=== PATIENT | male | born 1960 | race Hispanic/Latino ===

== ENCOUNTER 2025-04-02 13:01 | Emergency (ER) | payer OTHER ==
[~2025-04-02] VITALS: Ht 188 cm; Wt 102.5 kg
--- NOTE | 2025-04-02 14:27 | ERN ---
General Chief Complaint: Arm Swelling/Redness Stated Complaint: BOIL Time Seen by MD: 14:15 Source: patient History of Present Illness Initial Comments Patient is a 64 year old male complaining of ball like swelling in the left upper arm since one month which is painful with movements like turning door knobs and lifting anything heavy. Patient denies redness, weakness and fevers. Patient says he has been applying ice for several weeks without any improvement. Patient admits to work place injury a month ago in which he had a pull type injury. Past Medical History Past Medical History: No Pertinent History Past Surgical History: None ROS Dictation REVIEW OF SYSTEMS CONSTITUTIONAL: Denies fevers, chills, or night sweats. No unintentional weight loss reported. NEUROLOGICAL: Denies headache, motor weakness, sensory deficit, vertigo/spinning sensation CARDIOVASCULAR: Denies any exertional angina, dyspnea on exertion, orthopnea, paroxysmal nocturnal dyspnea, palpitations PULMONARY: Denies any shortness of breath, cough, phlegm/sputum, hemoptysis, pleuritic chest pain. GASTROINTESTINAL: Denies any type of dysphagia to either liquids or solids. Denies nausea, vomiting, pyrosis, early satiety, abdominal pain, diarrhea, constipation GENITOURINARY: Denies frequency, urgency, nocturia, hematuria or incontinence DERMATOLOGIC: Denies rashes, itching, redness. Physical Exam Physical Exam Dictation VITAL SIGNS: Reviewed. GENERAL APPEARANCE: Alert, oriented x3 HEAD AND FACE: Non-traumatic. EYES: PERRL, pink conjunctivas, eyelid no trauma, anterior chamber clear. EARS: Pinnas intact and no signs of trauma or erythema. Ear canals clear and no discharge. TMs no erythema. NOSE: No discharge, no bleeding. OROPHARYNX: Mouth normal, teeth no caries, tongue pink. Pharynx clear, no erythema. Tonsils no exudates, no abscesses noted. Mucous membrane moist. NECK: Supple, non-tender, no thyromegaly, no masses, no JVD, no bruits. BREAST: Deferred. CHEST: No tenderness, no crepitus, no paradoxical movement, no retractions. LUNGS: Clear, well-ventilated, symmetric, no rales, no wheezing, no rhonchi, no stridor, good breath sounds bilaterally. HEART: Regular rate, regular rhythm, no murmur, no gallops. VASCULAR: No peripheral edema. ABDOMEN: Soft, positive bowel sounds, nondistended, no guarding, nontender, no rebound, no masses no hepatomegaly, no splenomegaly, no Kulkarni's sign, no hernias. RECTAL: Deferred. GENITAL: Deferred. NEUROLOGICAL: Normal speech, gross motor function intact, gross sensory function intact. MUSCULOSKELETAL: Neck nontender, full range of motion, back nontender, full range of motion. EXTREMITIES: Circular ball like swelling, "josefina deformity" in the left upper arm Nontender, full range of motion. SKIN: Color pink, dry, no turgor, no rash, no lacerations, no abrasions, no contusions. LYMPHATICS: Deferred. Results EKG/XRAY/US/CT/MRI Ultrasound Comment ULTRASOUND-PARTIAL BICEPS TEAR MDM MDM: Differential diagnosis: Rupture of biceps tendon, intramuscular hemangioma, fibroma, abscess, synovial cyst Rationale: Tests considered and ordered secondary to shared decision making include: Previous outside records reviewed: Old ER visits. Risk of complication and/or morbidity or mortality of patient management: None Medications-Per medication reconciliation Need for hospitalization: Patient does not meet criteria for hospitalization. Need for emergency major/minor surgery: No There are no social concerns with this patient. Prescription drug management Prescriptions will include symptomatic care Patient's prior external medical records from other ER visits were reviewed by me as indicated. Prior testing and results from previous visits were reviewed. Prior tests were taken into account with medical decision making and resource utilization, independent historian/historians were used to obtain complete medical history. I independently interpreted the test that were performed, results were reviewed by me and considered findings on radiology if ordered. * Medical management and examination interpretation discussions were had by me with other qualified healthcare professionals as indicated for the patient's care. ED Course Orders Procedure Category Date Status Time Us Soft Tissue Upper US 04/02/25 Taken Extremity 14:19 Vital Signs Date Time Temp Pulse Resp B/P (MAP) Pulse Ox O2 Delivery O2 Flow Rate FiO2 04/02/25 15:11 97.2 88 20 132/88 95 Room Air* 0 21 04/02/25 14:15 97.2 95 20 145/105 95 Room Air* 0 21 04/02/25 13:02 97.2 95 20 145/105 95 Room Air DX & DISP Disposition: Discharge Departure Impression: Primary Impression: Traumatic partial tear of left biceps tendon Critical Time: 30 minutes Condition: Stable Additional Instructions: You have a proximal tendon tear of the biceps tendon. Will place a simple sling and encourage rest, ice, compression and elevation. F/u with PCP to obtain referral for physical therapy. Referrals: SELF,REFERRAL (PCP) LAST CRESPO MD Time of Disposition: 15:13 SAM CALLAHAN MD Apr 02, 2025 14:27 SAHARA ROA MD Apr 02, 2025 15:14
[2025-04-02 15:11] VITALS: BP 132/88; PULSE 88; RESP 20; TEMP 97.2; O2SAT 95
--- NOTE | 2025-04-02 15:14 | NUR ---
SLING APPLIED TO LT ARM, PT TOLERATED WELL
--- NOTE | 2025-04-02 15:49 | HMCIMG ---
EXAM: US examination, one body part CLINICAL HISTORY: Left arm swelling. Post pull/trauma injury. TECHNIQUE: Real-time ultrasound examination performed with image documentation. COMPARISON: None provided. FINDINGS: A complex area measuring 2.1 x 1.0 x 1.4 cm is noted in the region of the left biceps, corresponding to the site of palpable abnormality . The area is suggestive of a possible biceps tendon tear. IMPRESSION: Complex lesion in the left biceps region corresponding to the site of palpable abnormality, likely representing a biceps tendon tear. MRI may be useful for more complete evaluation. /[place]
== END 2025-04-02 15:12 | disposition home or self-care (01) ==
LOC: EDH 13:01
DX: S46.212A Strain of muscle, fascia and tendon of other parts of biceps, left arm, initial encounter (principal); X50.0XXA Overexertion from strenuous movement or load, initial encounter; Y93.89 Activity, other specified; Y92.89 Other specified places as the place of occurrence of the external cause; Y99.8 Other external cause status
CPT/HCPCS: 76882; 99284